=== PATIENT | female | born 1935 | race Caucasian/White ===

== ENCOUNTER 2023-08-23 22:03 | Emergency (ER) | payer OTHER, SELFPAY ==
[2023-08-23] VITALS (7 sets, daily range): BP systolic 119–141; BP diastolic 55–97; PULSE 55–56; BMI 23.7
[2023-08-23 22:17] LABS: % Basophils 0.5 % (0-2); % Eosinophils 0.5 % (0-6); % Immature Granulocytes 0.5 % (0-0.5); % Lymphocytes 6.9 % (20.5-51.1); % Monocytes 5.2 % (1.7-9.3); % Neutrophils 86.4 % (42.2-75.2); Absolute Basophils 0.1 10^3/uL (0-0.2); Absolute Eosinophils 0.1 10^3/uL (0-0.7); Absolute Immature Granulocytes 0.1 10^3/uL (0-0.05); Absolute Lymphocytes 0.8 10^3/uL (1.2-3.4); Absolute Monocytes 0.6 10^3/uL (0.1-0.6); Absolute Neutrophils 9.7 10^3/uL (1.4-6.5); Hematocrit 38.5 % (37.0-47.0); Hemoglobin 13.2 g/dL (12.0-16.0); Mean Corp Hgb Conc. 34.3 g/dL (33.0-37.0); Mean Corpuscular Hgb 31.5 pg (27.0-31.0); Mean Corpuscular Volume 91.9 fL (81.0-99.0); Mean Platelet Volume 9.7 fL (7.4-10.4); Nucleated Red Blood Cells % 0 %; Platelet Count 200 10^3/uL (130-400); Red Blood Cell Count 4.19 10^6/uL (4.20-5.40); Red Cell Dist. Width 13.9 % (11.5-14.5); White Blood Cell Count 11.3 10^3/uL (4.8-10.8)
[2023-08-23 22:46] LABS: Troponin I < 0.012 ng/ml
--- NOTE | 2023-08-23 22:46 | ED.GENMED ---
History of Present Illness
General
Chief Complaint: Weakness
Source: patient
Exam Limitations: none
Time Seen by Provider: 08/23/23 22:34
Travel History
Have you had any contact with someone who has COVID-19?: No
Do you have any symptoms of coronavirus? Fever > 100 degrees, chills, cough, shortness of breath, sore throat, loss of taste or smell, muscle aches, or headache?: No
History of Present Illness
History of Present Illness:
This is a 88 year old female that comes in by ambulance with c/o dizziness. States that she had finished dinner and had cleaned up and had walked back into the Living room and was picking up. States that she became lightheaded. Patient states that
she had a Martini tonight but throw it away. Denies any fever, chills, chest pain, SOB, abd pain, nausea, vomiting, diarrhea, headache, urinary burning.
Family states that they feels that she has more Alcohol then she is admitting to.
Past History
Past History
ED Past Medical History: Cancer (Sin CA), HTN, Hypercholesterolemia, Psychiatric (Anxiety) and Other (Osteoarthritis of the knees, kidney stone. Back pain, UTI, )
ED Past Surgical History: None, Orthopedic (right and left knee surgery X 2) and Other (Bilateral cataracts, )
Social History
Tobacco: Former smoker
Alcohol: Occasional
Drug: None
Personal:
Living: alone (Has care givers)
Employment: Retired
Family History
Family History: Other (Noncontributory)
Review of Systems
Review of Systems
All Other Systems: ROS reviewed and negative except as documented in HPI and ROS
Constitutional: Reports no symptoms; Denies fever or chills
EENT: Reports no symptoms
Respiratory: Reports no symptoms; Denies cough or trouble breathing
Cardiac: Reports no symptoms; Denies chest pain
ABD/GI: Reports no symptoms; Denies abdominal pain, nausea, vomiting or diarrhea
: Reports no symptoms; Denies dysuria, frequency or urgency
Musculoskeletal: Reports no symptoms
Skin: Reports no symptoms
Neurological: Reports other (Lightheaded); Denies dizzy or headache
Psychiatric: Reports no symptoms
Phy Exam
General Physical Exam
General Presentation: no apparent distress
General age: appears stated age
General Skin: warm and dry
General Habitus: elderly
General Mental: alert
General Hydration: dry mucous membranes
ENT Exam
ENT Exam: TM's normal, pharynx normal and neck supple
Eye Exam
Eye Exam: EOMI
Cardiovascular Exam
Cardiovascular Exam: regular rate/rhythm and normal peripheral pulses
Pulmonary Exam
Pulmonary Exam: lungs clear, no respiratory distress, no rales, chest non tender, no crackles, no rhonchi, no wheezing and no cough
Gastrointestinal Exam
Gastrointestinal Exam: non tender, soft, no organomegaly, no pulsatile mass, non distended and other (Hypoactive bowel sounds)
Musculoskeletal Exam
Musculoskeletal Exam: full ROM and edema (Ankles bilaterally, Nonpitting)
Skin Exam
Skin Exam: normal color, warm/dry, no rash and no petechia
Psychiatric Exam
Psychiatric Exam: normal mood/affect
Course
Orders/Labs/Results
Orders:
Orders
08/23/23 22:08
Electrocardiogram (*1) Urgent
Reason for Study: Other
Other Reason for Exam: Respiratory Distress
Cardiac Monitoring- Treatment ONCE
EKG- Treatment ONCE
O2 Therapy [RESP] Urgent
Titrate/Wean O2 to maintain O2 sat greater than (%): 93
Special Instructions: TO MAINTAIN CONTINUOUS O2 SATS >/= 93%
Pulse Ox/cont/shift [RESP] Urgent
Quantity: 1
Special Instructions: continuous pulse ox
08/23/23 22:11
Complete Blood Count/With Diff Urgent
Troponin I Urgent
08/23/23 22:30
Alcohol Urgent
Comprehensive Metabolic Panel Urgent
08/23/23 22:46
Add On- LAB Urgent
Tests Added?: aLCOHOL
CT Head W/o Iv Contrast Urgent
Comment:
Reason For Exam: DIZZINESS
0.9% Sodium Chloride 1000 ml [Nss] 1,000 ml IV BOLUS
08/23/23 22:50
Orthostatic VS- Treatment ONCE
08/23/23 22:52
Urinalysis Reflex To Culture Urgent
Abnormal Lab Results
08/23/23 08/23/23
22:11 22:30
WBC 11.3 H 10^3/uL
(4.8-10.8)
RBC 4.19 L 10^6/uL
(4.20-5.40)
MCH 31.5 H pg
(27.0-31.0)
Abs Immat Gran (auto) 0.1 H 10^3/uL
(0-0.05)
Absolute Neuts (auto) 9.7 H 10^3/uL
(1.4-6.5)
Absolute Lymphs (auto) 0.8 L 10^3/uL
(1.2-3.4)
Neutrophils % 86.4 H %
(42.2-75.2)
Lymphocytes % 6.9 L %
(20.5-51.1)
BUN 29 H mg/dl
(7-17)
Creatinine 1.2 H mg/dL
(0.6-1.0)
Glucose 110 H mg/dl
(70-99)
Total Protein 6.1 L g/dl
(6.3-8.2)
08/23/23 22:11
08/23/23 22:30
WBC slightly elevated. Dehydration. Glucose nonfasting. total Protein slightly low. Troponin <0.012 Alcohol 117
Vital Signs
Initial and Last Documented VS:
Initial Vital Signs
Temp Pulse Resp BP Pulse Ox
97.5 F 51 18 138/55 99
08/23/23 22:06 08/23/23 22:06 08/23/23 22:06 08/23/23 22:06 08/23/23 22:06
Last Documented Vital Signs
Temp Pulse Resp BP Pulse Ox
97.5 F 51 18 138/55 98
08/23/23 22:06 08/23/23 22:06 08/23/23 22:06 08/23/23 22:06 08/23/23 22:23
MDM/Problems Addressed
Differential Diagnosis Includes:
Dehydration. Alcohol use,
MDM/Problems Addressed:
This is a 88 year old female that comes in with c/o lightheadedness. States that she finished dinner and went into her living room. staes that she was picking up and became lightheade. Patient admitted to some alcohol tonight and family feels that
she was drinking more then she admit to.
Will get labs. Alcohol and CT head. Will also given IV fluids.
Back into see patient and family. Explained that her Blood work shows that she is dehydrated and that she is intoxicated. Will have patient increase her water intake. Follow up with the family doctor as needed. Return with any concerns.
Chronic conditions affecting care:
NA
Acute Exacerbation and/or Progression of Chronic Illness:
NA
*Radiology
Radiology exam reviewed: radiology read reviewed (CT night hawk- No acute intracranial abnormality. NO acute territorial infarct, hemorrhage, mass effect, or midline shift. Mild microangiopathy and volume loss. )
*Pulse Oximetry
Patient hypoxic: no
*EKG
Interpreted by ED Provider?: Yes
Heart Rate: 48
Rate: bradycardiac
Rhythm: sinus (Prasanna)
[place]: normal axis
Interval: normal interval
QRS Pattern: normal QRS
Ischemia: no ischemia (Checked by Dr. Vásquez)
*Cancer Registry Manager Interpretation
Rate: bradycardiac
Heart Rate: 53
Rhythm: sinus (Prasanna)
*Critical Care Note
Total Time (30-74mins, 75-104mins- exclusive of procedures): Not Applicable
ED Attending Note
-
Portions of this chart may have been created with voice recognition software.� Occasional wrong word or��sound alike� substitutions may have occurred due to the inherent limitations of voice recognition software.
Discharge Plan
Departure
Patient Disposition: Home (Routine Discharge)
Date of Disposition: 08/24/23
Time of Disposition: 00:27
Patient with high blood pressure during this ER visit?: Yes
Condition: Good
Covid-19: Not Applicable
Discharge Problem:
Acute dehydration, Alcohol intoxication
Instructions: Dehydration, Adult (DC), Alcohol Use Disorder (DC), BLOOD PRESSURE
Prescriptions:
No Action
furosemide 40 MG tablet
60 mg PO WESA
furosemide 40 MG tablet
40 mg PO SUMOTUTHFR
lisinopril 20 MG tablet
20 mg PO DAILY
timolol maleate 1 DROP drops
1 drp BOTH EYES BID
simvastatin 20 MG tablet
20 mg PO DAILY
diphenhydramine-acetaminophen [Tylenol PM Extra Strength] 1 EACH tablet
1 tab PO HS
atenolol 50 MG tablet
50 mg PO BID
Dry Eye Relief 15 ML drops
1 drp BOTH EYES PRN PRN (Reason: DRY EYES)
mupirocin 2 % ointment
1 applic topical BID Qty: 1 0RF
celecoxib 200 mg Capsule
200 mg PO DAILY Qty: 14 0RF
Rx Instructions:
BEGIN WHEN PREDNISONE TAPER ENDS
aspirin 325 mg Tablet
325 mg PO DAILY Qty: 1 0RF
sennosides [senna] 8.6 mg Tablet
17.2 mg PO BID Qty: 1 0RF
docusate sodium 100 mg Capsule
100 mg PO BID Qty: 1 0RF
prednisone 10 mg tablet
40 mg PO TAPER Qty: 20 0RF
Rx Instructions:
4 TABS X 2 DAYS, 3 TABS X 2 DAYS, 2 TABS X 2 DAYS, 1 TAB X 2 DAYS, THEN STOP
tramadol [Ultram] 50 mg tablet
50 mg PO Q6H PRN (Reason: 1 tab moderatepain, 2 if severe ) Qty: 30 0RF
Rx Instructions:
Ongoing therapy
Dx Orthopedic surgery
famotidine [famotidine] 20 mg tablet
20 mg PO HS Qty: 30 0RF
acetaminophen [Tylenol Extra Strength] 500 MG tablet
1,000 mg PO TID Qty: 0 0RF
Referrals:
Harshad Savage MD [Family Provider] - Call in 1-3 days for appt
Activity Restrictions/Additional Instructions:
As discussed, your blood work shows that you are dehydrated and that you are intoxicated. Please increase your water intake to 8-8oz glasses daily. Try and cut out the alcohol. Follow up with the family doctor for recheck. IF YOU HAVE ANYOTHER
CONCERNS PLEASE RETURN TO THE EMERGENCY ROOM.
Interventions
Interventions:
*Risk Screen - Suicide Last Done: 08/23/23 22:06
*General Assessment Last Done: 08/23/23 22:06
*Neglect/Abuse Screening Last Done: 08/23/23 22:06
ED- Fall Risk Assessment Last Done: 08/23/23 22:23
*ED COVID-19 Vaccine History Last Done: 08/23/23 22:23
ED- Cardiac Assessment Last Done: 08/23/23 22:23
ED- Neurological Assessment Last Done: 08/23/23 22:23
ED- Pulmonary Assessment Last Done: 08/23/23 22:23
[2023-08-23 23:00] LABS: ALT (SGPT) 19 U/L (0-35); AST (SGOT) 28 U/L (14-36); Albumin 3.9 g/dl (3.5-5.0); Alcohol 117 mg/dl; Alkaline Phosphatase 64 U/L (38-126); Blood Urea Nitrogen 29 mg/dl (7-17); Calcium 9.2 mg/dl (8.4-10.2); Carbon Dioxide 24 mmol/L (22-30); Chloride 104 mmol/L (98-107); Estimated Creatinine Clearance 28 ml/min; Glucose 110 mg/dl (70-99); Potassium 3.5 mmol/L (3.5-5.1); Sodium 137 mmol/L (135-145); Total Bilirubin 0.6 mg/dl (0.2-1.3); Total Protein 6.1 g/dl (6.3-8.2); eGFR 43.54
[2023-08-23] MEDS: NSS 1000 IV (23:20)
[2023-08-24 00:26] VITALS: BP 136/64
[2023-08-24 00:35] VITALS: BP 136/64
== END 2023-08-24 00:35 | disposition home or self-care (01) ==
LOC: EMR 22:03
PROVIDERS: EMERGENCY PHYSICIAN Student in an Organized Health Care Education/Training Program; FAMILY PHYSICIAN Internal Medicine
DX: E86.0 Dehydration (principal); F10.129 Alcohol abuse with intoxication, unspecified; I10 Essential (primary) hypertension; E78.00 Pure hypercholesterolemia, unspecified; F41.9 Anxiety disorder, unspecified; Z87.440 Personal history of urinary (tract) infections; Z87.442 Personal history of urinary calculi; Z87.891 Personal history of nicotine dependence
CPT/HCPCS: 99284; 96360; 70450; 80053; 82077; 84484; 85025; 93005